=== PATIENT | female | born 1950 | race Caucasian/White ===

== ENCOUNTER → 2017-07-11 | Outpatient (CLI) | payer OTHER ==
--- NOTE | 2017-07-13 07:07 | US ---
EXAM DESCRIPTION: Thyroid CLINICAL HISTORY: 67 years Female, NONTOXIC THYROID NODULE COMPARISON: None. FINDINGS: The left thyroid lobe is enlarged, measuring 5.9 x 2.1 x 2.2 cm. It contains a solid 2.7 cm nodule in its mid/inferior pole without internal calcification or peripheral hypervascularity. There is a second solid 1.8 cm nodule in the mid/upper left thyroid lobe with some peripheral calcification and central microcalcification. The thyroid isthmus is not thickened. The right thyroid lobe is not identified and is, by history, surgically absent. IMPRESSION: 2 solid nodules in the left thyroid lobe as detailed above measuring up to 2.7 cm diameter. The patient has an older exam, comparison would be helpful to assess stability. Alternatively, ultrasound-guided biopsy of one or both nodules should be considered. Electronically signed by: Vinnie Caldera MD 07/13/2017 7:06 AM [facility]
== END ==
LOC: US 11:09
PROVIDERS: ATTEND Family Medicine
DX: E04.1 Nontoxic single thyroid nodule (principal)

== ENCOUNTER → 2018-01-22 | Outpatient (CLI) | payer OTHER ==
--- NOTE | 2018-01-23 15:34 | MAM ---
EXAM DESCRIPTION: 3D Screening BILATERAL : Digital Mammography. CLINICAL HISTORY: 67 years Female SCREENING . No complaints. No family history breast cancer. Childbirth. Postmenopausal. Currently on HRT. COMPARISON: 2-D digital screening bilateral study 03/18/2015.. No prior reports available. TECHNIQUE: Bilateral CC and MLO projection full-field images, 3-D tomosynthesis digital mammographic technique. CAD not utilized. FINDINGS: The breast parenchymal density pattern is: Scattered areas of fibroglandular density. No skin thickening or nipple retraction. Bilateral solitary microcalcifications. Bilateral secretory calcifications more on the right. No focal, stellate mass or density, focal asymmetry , and no suspicious microcalcifications bilaterally. Stable mammograms compared to prior study, taking into account differences in mammographic technique IMPRESSION: BI-RADS CATEGORY: 2 - BENIGN FINDINGS. FOLLOW UP: Routine digital bilateral screening, one year interval from January 2018. Written communication explaining the IMPRESSION and follow-up, will be mailed to the patient and referring health care provider. According to the [employer], yearly mammograms are recommended starting at age 40 and continuing as long as a woman is in good health. Any breast change noted on a breast self-exam should be reported promptly to the patient's healthcare provider. Breast MRI is recommended for women with an approximately 20-25% or greater lifetime risk of breast cancer, including women with a strong family history of breast or ovarian cancer and women who have been treated for Hodgkin's disease. A negative mammographic report should not delay tissue diagnosis in patients with significant clinical history or physical findings. Extremely dense breast tissue limits the sensitivity of digital mammography. Electronically signed by: Earnest Padilla MD 01/23/2018 3:32 PM CDT
== END ==
LOC: MAMMO 10:56
PROVIDERS: ATTEND Family Medicine
DX: Z12.31 Encounter for screening mammogram for malignant neoplasm of breast (principal)

== ENCOUNTER → 2020-07-07 | Outpatient (CLI) | payer OTHER | LOC: GMAJ 14:14 | PROVIDERS: ATTEND Family Medicine | DX: I10 Essential (primary) hypertension (principal); E78.2 Mixed hyperlipidemia; Z20.828 Contact with and (suspected) exposure to other viral communicable diseases ==